=== PATIENT | female | born 1980 | race Caucasian/White ===

== ENCOUNTER 2018-05-16 08:46 | Emergency (ER) | payer SELFPAY ==
[2018-05-16 08:58] VITALS: TEMP 97.8; BMI 22.6
--- NOTE | 2018-05-16 09:15 | PDOC ---
History of Present Illness - General Chief Complaint: Allergic Reaction Stated Complaint: Allergic Reaction Time Seen by Provider: 05/16/18 09:15 - History of Present Illness Initial Comments: 05/16/18 09:15 Ms. Lozano is a 38 yo female w/ no pmh who presents for evaluation of 1 week history of generalized itchiness. 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 She likewise has had no new soaps, detergents, chemicals, etc. that she can remember being exposed to. No other complaints at this time. She has attempted to take benadryl for the last several days for treatment w/ no relief. The patient denies chest pain, shortness of breath, headache and dizziness. Denies fever, chills, nausea, vomit, diarrhea and constipation. Denies dysuria, frequency, urgency and hematuria. Past History - Past Medical History Allergies/Adverse Reactions: Allergies Allergy/AdvReac Type Severity Reaction Status Date / Time No Known Allergies Allergy Verified 05/16/18 08:50 Home Medications: Ambulatory Orders Hydrocortisone [Cortisone] 60 gm TP BID PRN #1 tube 05/16/18 Prednisone 40 mg PO DAILY #16 tablet 05/16/18 Asthma: No COPD: No CHF: No Disorders: No Kidney Stones: No Psychiatric Problems: No - Surgical History Cardiac Surgery: No - Immunization History Immunization Up to Date: No - Suicide/Smoking/Psychosocial Hx Smoking History: Never smoked Have you smoked in the past 12 months: No Information on smoking cessation initiated: No Hx Alcohol Use: No Drug/Substance Use Hx: No Review of Systems - Review of Systems Comments:: 05/16/18 09:15 GENERAL/CONSTITUTIONAL: No fever or chills. No weakness. HEAD, EYES, EARS, NOSE AND THROAT: No change in vision. No ear pain or discharge. No sore throat. CARDIOVASCULAR: No chest pain or shortness of breath RESPIRATORY: No cough, wheezing, or hemoptysis. GASTROINTESTINAL: No nausea, vomiting, diarrhea or constipation. GENITOURINARY: No dysuria, frequency, or change in urination. MUSCULOSKELETAL: No joint or muscle swelling or pain. No neck or back pain. SKIN: No rash NEUROLOGIC: No headache, vertigo, loss of consciousness, or change in strength/ sensation. ENDOCRINE: No increased thirst. No abnormal weight change HEMATOLOGIC/LYMPHATIC: No anemia, easy bleeding, or history of blood clots. ALLERGIC/IMMUNOLOGIC: +Generalized itchiness to entire body. *Physical Exam - Vital Signs Last Vital Signs Temp Pulse Resp BP Pulse Ox 97.8 F 99 H 18 92/64 98 05/16/18 08:51 05/16/18 08:51 05/16/18 08:51 05/16/18 08:51 05/16/18 08:51 - Physical Exam Comments: 05/16/18 09:15 GENERAL: +Patient uncomfortably appearing. Awake, alert, and fully oriented, in no acute distress HEAD: No signs of trauma, normocephalic, atraumatic EYES: PERRLA, EOMI, sclera anicteric, conjunctiva clear ENT: Auricles normal inspection, hearing grossly normal, nares patent, oropharynx clear without exudates. Moist mucosa NECK: Normal ROM, supple, no lymphadenopathy, JVD, or masses LUNGS: No distress, speaks full sentences, clear to auscultation bilaterally HEART: Regular rate and rhythm, normal S1 and S2, no murmurs, rubs or gallops, peripheral pulses normal and equal bilaterally. ABDOMEN: Soft, nontender, normoactive bowel sounds. No guarding, no rebound. No masses EXTREMITIES: Normal inspection, Normal range of motion, no edema. No clubbing or cyanosis. NEUROLOGICAL: Cranial nerves II through XII grossly intact. Normal speech, normal gait, no focal sensorimotor deficits SKIN: Diffuse redness / excoriations c/w history and 2/2 itching noted throughout body. Moderate Sedation - Procedure Monitoring Vital Signs: Procedure Monitoring Vital Signs Temperature 97.8 F 05/16/18 08:51 Pulse Rate 99 H 05/16/18 08:51 Respiratory Rate 18 05/16/18 08:51 Blood Pressure 92/64 05/16/18 08:51 O2 Sat by Pulse Oximetry (%) 98 05/16/18 08:51 Medical Decision Making - Medical Decision Making 05/16/18 10:49 Ms. Lozano is a 38 yo female w/ pmh as described who presents for evaluation of rash as described. Patient given benadryl and solumedrol w/ relief from symptoms. Discharging patient to home w/ outpatient allergy f/u. Patient will return as needed for acute changes. No concern for acute process at this time. *DC/Admit/Observation/Transfer Diagnosis at time of Disposition: Rash - Discharge Dispostion Disposition: HOME Condition at time of disposition: Stable - Prescriptions Prescriptions: Hydrocortisone [Cortisone] 60 gm TP BID PRN #1 tube PRN Reason: For Itching Prednisone 40 mg PO DAILY #16 tablet - Referrals Referrals: Sincere Gutiérrez MD [Non Staff, Medical] - - Patient Instructions Printed Discharge Instructions: DI for Rash Additional Instructions: You were evaluated today in the ER for you rash. We were able to improve your symptoms with solumedrol and benadryl. You may continue taking benadryl every 8 hours at home. We have also sent a prescription to your pharmacy for prednisone for further symptom control. Take all medications as proscribed. Return to ER if any fever, chills, pain, difficulty breathing, or other concerning symptoms. - Post Discharge Activity Forms/Work/School Notes: Back to Work
[2018-05-16] MEDS ORDERED: methylPREDNISolone NA SUCC 125 MG/2 ML VIAL IVPB ONE (09:19)
[2018-05-16] MEDS ORDERED: diphenhydrAMINE HCL 25 MG CAPSULE (FP) PO ONE (09:19)
[2018-05-16] MEDS ORDERED: methylPREDNISolone NA SUCC 125 MG/2 ML VIAL ONE (09:20)
[2018-05-16] MEDS ORDERED: SODIUM CHLORIDE 1,000 ML IV STA (09:27)
--- NOTE | 2018-05-16 10:29 | PDOC ---
Attending Attestation - Resident Resident Name: Shilo Connor - ED Attending Attestation I have performed the following: I have examined & evaluated the patient, The case was reviewed & discussed with the resident, I agree w/resident's findings & plan, Exceptions are as noted - HPI HPI: 05/16/18 10:22 38 F with no PMH presenting with 6 days of diffuse itchy rash. Pt states that it started last week as a mild itching on her extremities. However, it gradually progressed and involved her chest and back. Pt denies CP/SOB. Denies tongue or lip swelling. States that the rash seems to worsen and subside with no known triggers. She reports having an allergy to pork as a child but no issues as an adult. Pt denies any new soaps/detergents. Denies any medications. No new foods. - Physicial Exam PE: 05/16/18 10:26 GENERAL: Awake, alert, and fully oriented, in no acute distress. HEAD: No signs of trauma EYES: PERRLA, EOMI, sclera anicteric, conjunctiva clear ENT: Auricles normal inspection, hearing grossly normal, nares patent, oropharynx clear without exudates. Moist mucosa NECK: Nontender, no stepoffs, Normal ROM, supple, no lymphadenopathy, JVD, or masses LUNGS: Breath sounds equal, clear to auscultation bilaterally. No wheezes, and no crackles HEART: Regular rate and rhythm, normal S1 and S2, no murmurs, rubs or gallops ABDOMEN: Soft, nontender, normoactive bowel sounds. No guarding, no rebound. No masses EXTREMITIES: Normal range of motion, no edema. No clubbing or cyanosis. No cords, erythema, or tenderness NEUROLOGICAL: Cranial nerves II through XII intact. 5/5 strength and sensation in all extremities, Normal speech, normal gait, normal cerebellar function SKIN: + erythematous maculopapular rash to chest, trunk, back, arms, blanching, no pustules/vesicles, no oral mucosal lesions, no palmar lesions - Medical Decision Making 05/16/18 10:29 38 F with likely allergic reaction. No airway involvement. No signs of anaphylaxis. - Benadryl, solumedrol - Reassess 05/16/18 10:39 Rash significantly improved with benadryl and steroids Will DC with allergy f/u. Pt is well appearing, with normal vitals. Clinically stable for DC at this time. I discussed the physical exam findings, ancillary test results and final diagnoses with the patient. I answered all of the patient's questions. The patient was satisfied with the care received and felt comfortable with the discharge plan and treatment plan. The patient agrees to follow up with the primary care physician within 24-72 hours.
[2018-05-16 11:07] VITALS: BP 95/63
[2018-05-16 11:08] VITALS: PULSE 73
[2018-05-16] MEDS ORDERED: NEOMYCIN/BACI/POLY/HC TOPICAL OINT 15 GM TUBE TP ONE (11:24)
[2018-05-16] MEDS ORDERED: HYDROCORTISONE 0.5% TOPICAL OINTMENT TUBE TP ONE (11:26)
== END 2018-05-16 12:05 | disposition home or self-care (01) ==
LOC: JER 08:46
PROC: 3E033GC Introduction of Other Therapeutic Substance into Peripheral Vein, Percutaneous Approach (ICD-10-PCS; principal; 2018-05-16)
PROC: 3E0337Z Introduction of Electrolytic and Water Balance Substance into Peripheral Vein, Percutaneous Approach (ICD-10-PCS; 2018-05-16)
DX: R21 Rash and other nonspecific skin eruption (principal)
CPT/HCPCS: 99282-25; J7030